=== PATIENT | male | born 1995 | race Caucasian/White ===

== ENCOUNTER 2017-08-28 08:00 | Outpatient (CLI) | payer OTHER | END 2017-08-28 08:01 | disposition home or self-care (01) | LOC: LAB.WCP 08:00 | PROVIDERS: ATTEND Physician Assistant Medical | DX: Z20.2 Contact with and (suspected) exposure to infections with a predominantly sexual mode of transmission (principal) | CPT/HCPCS: 87491; 87591 ==

== ENCOUNTER 2018-01-02 14:10 | Outpatient (CLI) | payer OTHER ==
[2018-01-03 13:32] LABS: HEPATITIS A IGM NON-REACTIVE (NON-REACTIVE); HEPATITIS B CORE ANTIBODY IGM NON-REACTIVE (NON-REACTIVE); HEPATITIS B SURFACE ANTIGEN NON-REACTIVE (NON-REACTIVE); HEPATITIS C ANTIBODY NON-REACTIVE (NON-REACTIVE)
[2018-01-03 14:23] LABS: HIV AG/AB 4TH GEN NON-REACTIVE (NON-REACTIVE)
[2018-01-04 12:16] LABS: HSV 1 IGG TYPE SPECIFIC AB <0.90 index; HSV 2 IGG TYPE SPECIFIC AB <0.90 index
== END 2018-01-02 14:11 | disposition home or self-care (01) ==
LOC: LAB.WCP 14:10
PROVIDERS: ATTEND Family Medicine
DX: Z13.9 Encounter for screening, unspecified (principal); A74.9 Chlamydial infection, unspecified
CPT/HCPCS: 36415; 80074; 81599; 86592; 86695; 86696; 87389; 87491; 87591

== ENCOUNTER 2021-07-24 19:46 | Emergency (ER) | payer OTHER ==
--- NOTE | 2021-07-24 20:20 | ED Physician Documentation ---
History of Present Illness - Stated complaint Stated Complaint: UPPER BACK PX - Chief complaint Chief Complaint: Back Pain - History obtained from History obtained from: Patient - History of Present Illness Timing: Today Pain level max: 8 Pain level now: 6 - Additonal information Additional information: 26-year-old male, presents to the emergency department with upper back pain. He states that it started today when he put his hands behind his neck and pulled it forward to stretch the area. He felt a sharp twinge in his since developed spasm on the right side of the neck and right upper back. No numbness or tingling. He was outside today when he slipped in a puddle, fell and worsened the pain. Took Motrin about 10 hours prior to arrival. He states that it did help but is starting to hurt again. No loss of consciousness. No fevers. No chills. No loss of bowel or bladder control. Does not use any IV drugs. No recent illnesses Review of Systems Constitutional: denies: Fever, Chills Respiratory: denies: Cough GI: denies: Vomiting, Diarrhea : denies: Dysuria, Frequency, Hesitancy, Incontinent Skin: denies: Rash Neurologic: denies: Focal weakness, Numbness PD PAST MEDICAL HISTORY - Past Medical History Past Medical History: No - Past Surgical History Past Surgical History: No - Present Medications Home Medications: Ambulatory Orders Medication Instructions Recorded Confirmed HYDROcod/ACETAM 5/325 [Ambia 5/325] 1 - 2 ea PO Q6H PRN #14 tablet 07/24/21 Meloxicam [Mobic] 15 mg PO DAILY PRN #20 tablet 07/24/21 methocarbamoL [Robaxin] 500 mg PO Q6H PRN #20 tablet 07/24/21 - Allergies Allergies/Adverse Reactions: Allergies Allergy/AdvReac Type Severity Reaction Status Date / Time No Known Drug Allergies Allergy Verified 07/24/21 19:57 - Living Situation Living Situation: reports: With family Living Arrangement: reports: At home - Social History Does the pt smoke?: No Smoking Status: Never smoker Does the pt drink ETOH?: No Does the pt have substance abuse?: No - Immunizations Immunizations are current?: Yes - POLST Patient has POLST: No PD ED PE NORMAL - Vitals Vital signs reviewed: Yes - General General: Alert and oriented X 3, No acute distress - HEENT HEENT: PERRL - Neck Neck: Other (No midline tenderness to palpation or percussion. No step-off or d eformity. There is paraspinal tenderness and spasm on the right side of the neck. Extends to the upper thoracic area about T2.) - Cardiac Cardiac: RRR - Respiratory Respiratory: No respiratory distress, Clear bilaterally - Abdomen Abdomen: Soft, Non tender, Non distended - Back Back: No spinal TTP - Derm Derm: Warm and dry - Extremities Extremities: Other (Normal bilateral lower extremity patellar and ankle jerk reflexes. Normal great toe extension bilaterally. no saddle anesthesia) - Neuro Neuro: Alert and oriented X 3, glass vial bending conveyor feeder 2-12 intact, No motor deficit, No sensory deficit Eye Opening: Spontaneous Motor: Obeys Commands Verbal: Oriented GCS Score: 15 - Psych Psych: Normal mood, Normal affect Results - Vitals Vitals: Vital Signs - 24 hr 07/24/21 07/24/21 19:51 20:40 Temperature 36.5 C Heart Rate 89 88 Respiratory 16 17 Rate Blood Pressure 142/80 H 124/84 H O2 Saturation 100 100 Oxygen O2 Source Room air PD MEDICAL DECISION MAKING - ED course Complexity details: considered differential, d/w patient ED course: 26-year-old male with neck pain. No evidence of cauda equina, epidural abscess. No evidence of fracture. No indication for imaging. No midline tenderness. Limited range of motion of the neck secondary to pain. We will place on pain medication and muscle relaxants for home. We will continue gentle stretching. Patient counseled regarding signs and symptoms for which I believe and urgent re-evaluation would be necessary. Patient with good understanding of and agreement to plan and is comfortable going home at this time This document was made in part using voice recognition software. While efforts are made to proofread this document, sound alike and grammatical errors may occur. Departure - Departure Disposition: 01 Home, Self Care Clinical Impression: Back spasm Condition: Good Instructions: ED Spasm Back No Trauma Follow-Up: your,doctor in 1 week [Other] Prescriptions: Meloxicam [Mobic] 15 mg PO DAILY PRN #20 tablet PRN Reason: pain HYDROcod/ACETAM 5/325 [Ambia 5/325] 1 - 2 ea PO Q6H PRN #14 tablet PRN Reason: Pain methocarbamoL [Robaxin] 500 mg PO Q6H PRN #20 tablet PRN Reason: muscle spasm Comments: Your [facility] were sent to [facility] in [place]. Please follow-up with your doctor for further care. Do not drive or operate heavy machinery while taking the Robaxin or the hydrocodone. Continue to gently stretch your neck at home. I am prescribing a short course of narcotic pain medication for you. These are potentially dangerous and addictive medications that should be used carefully. These medications may constipate you. Take an edfn-eft-[id number] stool softener (docusate) twice daily with plenty of water while taking these medications. If you go 24 hours without a bowel movement, take [id number] miralax, per package instructions. Do not drink or drive while taking these medications. If you received narcotic or sedating medications while in the emergency department, do not drive for 24 hours. Store this medication in a safe, secure place and out of reach of children. It is a violation of federal law to give or sell this medication to another person or to use in a manner other than prescribed. The ED will not refill narcotic prescriptions, including prescriptions lost or stolen. To dispose of unwanted medications: 1. [facility] [address] in [place] has a medication drop box. They accept prescription medications (in pill form) Sunday through Sunday 9:00 a.m. to 5:00 p.m. 2. The [facility] [employer] accepts prescription medications (in pill form only) for disposal year round. Call for more information. 3. Contact the [facility] for the next [facility] sponsored prescription drug collection event. , [phone], or [phone]; Discharge Date/Time: 07/24/21 20:44
[2021-07-24] MEDS: DEXAMETHASONE 10 MG/ML VIAL PO STA (20:23)
[2021-07-24] MEDS: HYDROcod/ACETAM 5/325 MG TABLET PO STA (20:23)
[2021-07-24] MEDS: methocarbamoL 500 MG TABLET PO STA (20:23)
[2021-07-24] MEDS: CHERRY SYRUP 10 ML UDC PO ONE (20:23)
[2021-07-24 20:41] VITALS: BP 124/84
== END 2021-07-24 20:44 | disposition home or self-care (01) ==
LOC: ED 19:46
DX: M62.830 Muscle spasm of back (principal); M54.6 Pain in thoracic spine; M54.2 Cervicalgia
CPT/HCPCS: 99282; 99283; A9270

== ENCOUNTER 2023-07-20 08:00 | Outpatient (CLI) | payer BC, OTHER ==
[2023-07-20 20:27] LABS: CHLAMYDIA TRACHOMATIS DNA NEGATIVE (NEGATIVE); NEISSERIA GONORRHOEAE DNA NEGATIVE (NEGATIVE); TRICHOMONAS VAGINALIS DNA NEGATIVE (NEGATIVE)
[2023-07-21 02:10] LABS: HCV AB Non Reactive (Non Reactive); HIV SCREEN 4TH GENERATION Non Reactive (Non Reactive)
[2023-07-21 06:11] LABS: RPR Non Reactive (Non Reactive)
[2023-07-21 08:10] LABS: HSV 1 IGG TYPE SPEC 1.24 index (0.00-0.90); HSV 2 IGG TYPE SPEC <0.91 index (0.00-0.90)
== END 2023-07-20 23:59 | disposition home or self-care (01) ==
LOC: LAB.N 08:00
PROVIDERS: ATTEND Physician Assistant
DX: Z11.3 Encounter for screening for infections with a predominantly sexual mode of transmission (principal)
CPT/HCPCS: 36415; 86592; 86695; 86696; 86803; 87389; 87491; 87591; 87661

== ENCOUNTER 2023-08-03 08:00 | Outpatient (CLI) | payer BC ==
[2023-08-03 20:39] LABS: CHLAMYDIA TRACHOMATIS DNA NEGATIVE (NEGATIVE); NEISSERIA GONORRHOEAE DNA NEGATIVE (NEGATIVE); TRICHOMONAS VAGINALIS DNA NEGATIVE (NEGATIVE)
== END 2023-08-03 23:59 | disposition home or self-care (01) ==
LOC: LAB.N 08:00
PROVIDERS: ATTEND Physician Assistant
DX: Z11.3 Encounter for screening for infections with a predominantly sexual mode of transmission (principal)
CPT/HCPCS: 87491; 87591; 87661